=== PATIENT | male | born 1995 | race Caucasian/White ===

== ENCOUNTER 2020-09-05 15:00 | Outpatient (CLI) | payer OTHER ==
--- NOTE | 2020-09-05 15:44 | ULT ---
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 No hydronephrosis. Left Kidney: Size: 10.2 x 5.3 x 6.4 cm; left renal cortical thickness was 2.1 cm. Abnormality: Normal cortical echotexture. No hydronephrosis Urinary bladder: A normal urinary bladder is not identified. Within the right lower quadrant of the a bdomen is the patient's reported neobladder. The neobladder has a thickened wall with a prevoid bladder volume of 356.4 cc. No intraluminal mass is grossly evident. IMPRESSION: 1. No focal renal lesion or hydronephrosis. 2. Right lower quadrant neobladder.
== END 2020-09-05 15:01 | disposition home or self-care (01) ==
LOC: BICULT 15:00
PROVIDERS: ATTEND Urology
DX: Q64.10 Exstrophy of urinary bladder, unspecified (principal)
CPT/HCPCS: 76770

== ENCOUNTER 2020-09-12 08:59 | Outpatient (CLI) | payer OTHER ==
[2020-09-12] MEDS ORDERED: Magnevist 469MG/ML 20 ML VIAL ONE (10:49)
--- NOTE | 2020-09-12 11:02 | MRI ---
Brain MRI with and without contrast: 09/12/2020 COMPARISON: None HISTORY: Paresthesias, twitching in bilateral upper and lower extremities TECHNIQUE: Multiplanar multisequence MR imaging of the brain obtained with and without contrast FINDINGS: The diffusion weighted imaging demonstrates no evidence for acute infarction. The axial gradient echo imaging demonstrates no evidence for intracranial hemorrhage. Arterial flow voids at the axial level of the skull base appear unremarkable on the T2-weighted imagi ng. The imaged paranasal sinuses and mastoid air cells are well-aerated. There is no midline shift or mass effect. No ventricular enlargement. No abnormal white matter signal intensity. Postcontrast imaging demonstrates no abnormal enhancement. IMPRESSION: No acute findings.
== END 2020-09-12 09:00 | disposition home or self-care (01) ==
LOC: BICMRI 08:59
PROVIDERS: ATTEND Psychiatry & Neurology Neurology
DX: R20.3 Hyperesthesia (principal)
CPT/HCPCS: 70553; A9579